=== PATIENT | male | born 1955 | race Caucasian/White ===

== ENCOUNTER 2018-03-05 12:12 | Inpatient (IN) | payer MEDICARE, BC ==
--- NOTE | 2018-03-05 13:11 | ED ---
General Adult HPI - General Chief complaint: Recheck/Abnormal Lab/Rx Stated complaint: Abnormal Labs Time Seen by Provider: 03/05/18 12:54 Source: patient, family, RN notes reviewed Mode of arrival: ambulatory Limitations: no limitations - History of Present Illness Initial comments: Patient is a pleasant 62-year-old male presenting to the emergency department with concern for low platelet level.Patient did have blood work done and had platelet level of 5 reported to him. patient has had chronic rectal bleeding daily for the past month or so. Patient did have recent scope done showing polyp in his stomach that was at least partially removed. Patient did have CAT scan. Patient is seeing Dr. Telles with plan for medication therapy. Patient did notice some red spots on his leg around a month ago however thought it was an ALLERGIC reaction. Red spots continue. Patient is unclear last time he had blood work done. - Related Data Home Medications Medication Instructions Recorded Confirmed Enalapril [Vasotec] 5 mg PO BID 01/05/14 03/05/18 Metoprolol Tartrate [Lopressor] 25 mg PO DAILY 01/05/14 03/05/18 Ranitidine HCl 150 mg PO BID 03/05/18 03/05/18 Allergies Allergy/AdvReac Type Severity Reaction Status Date / Time Penicillins AdvReac high fever Verified 03/05/18 13:11 Review of Systems ROS Statement: Those systems with pertinent positive or pertinent negative responses have been documented in the HPI. ROS Other: All systems not noted in ROS Statement are negative. Constitutional: Denies: fever Eyes: Denies: eye pain ENT: Denies: ear pain Respiratory: Denies: cough, dyspnea Cardiovascular: Denies: chest pain Endocrine: Denies: fatigue Gastrointestinal: Reports: hematochezia. Denies: abdominal pain Genitourinary: Denies: dysuria Musculoskeletal: Denies: back pain Skin: Reports: rash Neurological: Denies: weakness Past Medical History Past Medical History: COPD, GERD/Reflux, Hyperlipidemia, Hypertension, Prostate Disorder Additional Past Medical History / Comment(s): HX RT PNEUMOTHORAX, hx migraines, heart murmer, palpitations, gluten sensitive, diverticulitis, arthritis in neck , left inguinal hernia, small tumor on stomach - cancer History of Any Multi-Drug Resistant Organisms: None Reported Past Surgical History: Adenoidectomy, Hernia Repair, Orthopedic Surgery, Tonsillectomy Additional Past Surgical History / Comment(s): CERVICAL FUSION C3-C6, BILAT CATARACTS, shay knee arthroscopy, Past Anesthesia/Blood Transfusion Reactions: No Reported Reaction Additional Past Anesthesia/Blood Transfusion Reaction / Comment(s): post op breathing problems and diff waking up after neck surgery Past Psychological History: Anxiety Smoking Status: Former smoker Past Alcohol Use History: None Reported Past Drug Use History: Marijuana - Past Family History Mother Family Medical History: No Reported History General Exam Limitations: no limitations General appearance: alert, in no apparent distress Head exam: Present: atraumatic Eye exam: Present: normal appearance, PERRL ENT exam: Present: normal oropharynx Neck exam: Present: normal inspection Respiratory exam: Present: normal lung sounds bilaterally Cardiovascular Exam: Present: regular rate, normal rhythm GI/Abdominal exam: Present: soft. Absent: tenderness Extremities exam: Present: normal inspection Neurological exam: Present: alert Psychiatric exam: Present: normal affect, normal mood Skin exam: Present: petechiae (Bilateral lower legs) Course Vital Signs 03/05/18 03/05/18 12:15 12:40 Temperature 98.4 F Pulse Rate 78 Respiratory 18 16 Rate Blood Pressure 145/85 O2 Sat by Pulse 96 Oximetry Medical Decision Making - Medical Decision Making Case discussed in detail with Dr. Telles who is familiar with this patient. 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 He states there is also colitis on colonoscopy. He does recommend Solu-Medrol and IVIG 0.5 g/ kg followed by platelets 1 unit. 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 Case was also discussed in detail with Dr. Luz, covering for Dr. reyes, who admits for Dr. ascencio - Lab Data Result diagrams: 03/05/18 13:20 03/05/18 13:20 Lab Results 03/05/18 03/05/18 03/05/18 Range/Units 13:20 13:20 13:20 WBC 6.7 (3.8-10.6) k/uL RBC 4.89 (4.30-5.90) m/uL Hgb 13.5 (13.0-17.5) gm/dL Hct 38.8 L (39.0-53.0) % MCV 79.4 L (80.0-100.0) fL MCH 27.5 (25.0-35.0) pg MCHC 34.7 (31.0-37.0) g/dL RDW 13.8 (11.5-15.5) % Plt Count 7 L* (150-450) k/uL Neutrophils % 59 % Lymphocytes % 31 % Monocytes % 6 % Eosinophils % 2 % Basophils % 1 % Neutrophils # 3.9 (1.3-7.7) k/uL Lymphocytes # 2.0 (1.0-4.8) k/uL Monocytes # 0.4 (0-1.0) k/uL Eosinophils # 0.2 (0-0.7) k/uL Basophils # 0.0 (0-0.2) k/uL Manual Slide Review Performed Poikilocytosis (manual Present PT 10.6 (9.0-12.0) sec INR 1.1 (<1.2) APTT 27.6 (22.0-30.0) sec Sodium 135 L (137-145) mmol/L Potassium 3.9 (3.5-5.1) mmol/L Chloride 104 (98-107) mmol/L Carbon Dioxide 26 (22-30) mmol/L Anion Gap 5 mmol/L BUN 17 (9-20) mg/dL Creatinine 0.81 (0.66-1.25) mg/dL Est GFR (CKD-EPI)AfAm >90 (>60 ml/min/1.73 sqM) Est GFR (CKD-EPI)NonAf >90 (>60 ml/min/1.73 sqM) Glucose 124 H (74-99) mg/dL Calcium 8.5 (8.4-10.2) mg/dL Total Bilirubin 0.2 (0.2-1.3) mg/dL AST 27 (17-59) U/L ALT 29 (21-72) U/L Alkaline Phosphatase 65 (38-126) U/L Total Protein 6.2 L (6.3-8.2) g/dL Albumin 3.5 (3.5-5.0) g/dL Critical Care Time Critical Care Time: Yes Total Critical Care Time: 33 Disposition Clinical Impression: Thrombocytopenia Disposition: ADMITTED IP TO THIS [facility] Condition: Serious Is patient prescribed a controlled substance at d/c from ED?: No Referrals: Trever Navarro MD [Primary Care Provider] - 1-2 days Decision Time: 15:02
[2018-03-05 13:47] LABS: Basophils % (A) 1 %; Eosinophils # (A) 0.2 k/uL (0-0.7); Eosinophils % (A) 2 %; HCT 38.8 % (39.0-53.0); HGB 13.5 gm/dL (13.0-17.5); Lymphocytes % (A) 31 %; MCH 27.5 pg (25.0-35.0); MCHC 34.7 g/dL (31.0-37.0); MCV 79.4 fL (80.0-100.0); Mean Platelet Volume 11.9; Monocytes # (A) 0.4 k/uL (0-1.0); Monocytes % (A) 6 %; Neutrophils # (A) 3.9 k/uL (1.3-7.7); Neutrophils % (A) 59 %; RBC 4.89 m/uL (4.30-5.90); RDW 13.8 % (11.5-15.5); WBC 6.7 k/uL (3.8-10.6)
[2018-03-05 13:51] LABS: INR 1.1 (<1.2); Partial Thromboplastin Time 27.6 sec (22.0-30.0); Prothrombin Time 10.6 sec (9.0-12.0)
[2018-03-05 13:52] LABS: ALT 29 U/L (21-72); AST 27 U/L (17-59); Albumin 3.5 g/dL (3.5-5.0); Alkaline Phosphatase 65 U/L (38-126); Anion Gap 5 mmol/L; Blood Urea Nitrogen 17 mg/dL (9-20); Calcium 8.5 mg/dL (8.4-10.2); Carbon Dioxide 26 mmol/L (22-30); Chloride 104 mmol/L (98-107); Glucose 124 mg/dL (74-99); Potassium 3.9 mmol/L (3.5-5.1); Sodium 135 mmol/L (137-145); Total Bilirubin 0.2 mg/dL (0.2-1.3); Total Protein 6.2 g/dL (6.3-8.2)
[2018-03-05 14:19] LABS: Platelet Count 7 k/uL (150-450)
[2018-03-05 14:22] LABS: Poikilocytosis (M) Present
[2018-03-05] MEDS ORDERED: methylPREDNISolone SOD SUCCI 125 MG/2 ML VIAL IV STA (14:55)
[2018-03-05] MEDS ORDERED: IMMUNE GLOBULIN (HUMAN-IGG) 1 GM/10 ML VIAL IV ONE (14:56)
[2018-03-05] MEDS ORDERED: NALOXONE 0.4 MG/ML 1 ML VIAL IV PRN (15:04)
[2018-03-05] MEDS ORDERED: IMMUNE GLOBULIN (HUMAN-IGG) 30 GM in EMPTY BAG 1 BAG IV ONE (15:30)
[2018-03-05] MEDS ORDERED: IMMUNE GLOBULIN (HUMAN-IGG) 5 GM in EMPTY BAG 1 BAG IV ONE (15:30)
--- NOTE | 2018-03-05 16:13 | P.HPIM ---
History of Present Illness H&P Date: 03/05/18 Chief Complaint: Abnormal blood count 62-year-old male who was referred from Dr. Braxton's office because of abnormal blood test. Patient was found to have extremely low platelet count at 7. Most recently patient had an upper endoscopy, had a biopsy of a duodenal polyp and that showed what could be a carcinoid/neuroendocrine tumor. No further treatment was recommended for that because the tumor was very small and he did not have any systemic disease. Patient stated that he has been having bright red blood in the stool over the last several months. He has also been having red dots in both his legs as well. Last August he had a hernia repair through a laparoscopy and after that he started having stomach upset. Several months later he had the upper endoscopy because he continued to have symptoms of stomach upset. He denied having any fevers, chills, chest pain or shortness of breath. No nausea or vomiting, no diarrhea. No urinary symptoms. No focal weakness or numbness, no blurry or double vision. 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 History of Any Multi-Drug Resistant Organisms: None Reported Past Surgical History: Adenoidectomy, Hernia Repair, Orthopedic Surgery, Tonsillectomy Additional Past Surgical History / Comment(s): CERVICAL FUSION C3-C6, BILAT CATARACTS, shay knee arthroscopy, Past Anesthesia/Blood Transfusion Reactions: No Reported Reaction Additional Past Anesthesia/Blood Transfusion Reaction / Comment(s): post op breathing problems and diff waking up after neck surgery Past Psychological History: Anxiety Smoking Status: Former smoker Past Alcohol Use History: None Reported Past Drug Use History: Marijuana - Past Family History Mother Family Medical History: No Reported History Medications and Allergies Home Medications Medication Instructions Recorded Confirmed Type Enalapril [Vasotec] 5 mg PO BID 01/05/14 03/05/18 History Metoprolol Tartrate [Lopressor] 25 mg PO DAILY 01/05/14 03/05/18 History Ranitidine HCl 150 mg PO BID 03/05/18 03/05/18 History Allergies Allergy/AdvReac Type Severity Reaction Status Date / Time Penicillins AdvReac high fever Verified 03/05/18 13:11 Physical Exam Vitals: Vital Signs Temp Pulse Resp BP Pulse Ox 03/05/18 12:40 16 03/05/18 12:15 98.4 F 78 18 145/85 96 Intake and Output 03/05/18 03/05/18 03/05/18 06:59 14:59 22:59 Other: Weight 82.554 kg Constitutional: No acute distress, conversant, pleasant Eyes:Anicteric sclerae, moist conjunctiva, no lid-lag, PERRLA, ENMT: Oropharynx clear, no erythema, exudates Neck: Supple, FROM, no masses, or JVD, No carotid bruits, No thyromegaly Lungs: Clear to auscultation, Clear to percussion, Normal respiratory effort, no accessory muscle use Cardiovascular: Heart regular in rate and rhythm, No murmurs, gallops, or rubs, No peripheral edema Abdominal: Soft, Nontender, no guarding, rebound or rigidity, Normoactive bowel sounds, No hepatomegaly, No splenomegaly, No palpable mass Skin: Petechiae in both legs. Normal temperature, tone, texture, turgor, no induration, No subcutaneous nodules, No ulcers Extremities: No digital cyanosis, No clubbing, Pedal pulses intact and symmetrical, Radial pulses intact and symmetrical, No calf tenderness Psychiatric: Alert and oriented to person, place and time, appropriate affect, intact judgement Neuro: Muscles Strength 5/5 in all 4 extremities, Sensation to light touch grossly present throughout, Cranial nerves II-XII grossly intact, no focal sensory deficits Results CBC & Chem 7: 03/05/18 13:20 03/05/18 13:20 Labs: Abnormal Lab Results - Last 24 Hours (Table) 03/05/18 03/05/18 Range/Units 13:20 13:20 Hct 38.8 L (39.0-53.0) % MCV 79.4 L (80.0-100.0) fL Plt Count 7 L* (150-450) k/uL Sodium 135 L (137-145) mmol/L Glucose 124 H (74-99) mg/dL Total Protein 6.2 L (6.3-8.2) g/dL Assessment and Plan Plan: Severe thrombocytopenia, most likely secondary to ITP Discussed with Dr. Braxton Treat with steroids and IVIG Platelet transfusion Follow-up CBC in a.m. Further workup as per Dr. Braxton GERD/Reflux, Hyperlipidemia, Hypertension Stable Resume home meds DVT prophylaxis Low risk, ambulatory
[2018-03-05] MEDS: SODIUM CHLORIDE 0.9% 1,000 ML IV SCH (18:22)
[2018-03-05] MEDS: methylPREDNISolone SOD SUCCI 125 MG/2 ML VIAL IV SCH (19:12)
[2018-03-05] MEDS: LISINOPRIL 10 MG TAB PO SCH (21:02)
[2018-03-05] MEDS: FAMOTIDINE 20 MG TAB PO SCH (21:02)
[2018-03-05 21:32] LABS: Glucose,Whole Blood 131 mg/dL (75-99)
[2018-03-05] MEDS ORDERED: DIAZEPAM 5 MG TAB PO PRN (21:48)
[2018-03-05] MEDS ORDERED: IPRATROPIUM-ALBUTEROL 3 ML NEB INHALATION PRN (21:49)
[2018-03-05] MEDS ORDERED: ACETAMINOPHEN TAB 325 MG TAB PO PRN (21:49)
[2018-03-05] MEDS: ATORVASTATIN 10 MG TAB PO SCH (22:17)
[2018-03-06] MEDS: methylPREDNISolone SOD SUCCI 125 MG/2 ML VIAL IV SCH ×5 (00:04→23:42)
[2018-03-06 06:26] LABS: Glucose,Whole Blood 154 mg/dL (75-99)
[2018-03-06] MEDS: INSULIN ASPART 100 UNIT/ML 1 ML 10 ML VIAL SQ SCH ×4 (06:36→22:19)
[2018-03-06 06:50] LABS: Basophils % (A) 0 %; Eosinophils % (A) 0 %; HGB 13.6 gm/dL (13.0-17.5); Lymphocytes % (A) 13 %; MCH 27.4 pg (25.0-35.0); MCV 80.4 fL (80.0-100.0); Monocytes # (A) 0.1 k/uL (0-1.0); Monocytes % (A) 2 %; Neutrophils # (A) 6.5 k/uL (1.3-7.7); Neutrophils % (A) 84 %; RBC 4.98 m/uL (4.30-5.90); RDW 13.7 % (11.5-15.5); WBC 7.7 k/uL (3.8-10.6)
[2018-03-06 06:59] LABS: Anion Gap 6 mmol/L; Blood Urea Nitrogen 17 mg/dL (9-20); Calcium 8.9 mg/dL (8.4-10.2); Carbon Dioxide 24 mmol/L (22-30); Chloride 108 mmol/L (98-107); Glucose 153 mg/dL (74-99); Magnesium 1.9 mg/dL (1.6-2.3); Phosphorus 2.9 mg/dL (2.5-4.5); Potassium 4.1 mmol/L (3.5-5.1); Sodium 138 mmol/L (137-145)
[2018-03-06] MEDS: METOPROLOL TARTRATE 25 MG TAB PO SCH (09:17)
[2018-03-06] MEDS: FAMOTIDINE 20 MG TAB PO SCH ×2 (09:17→21:05)
[2018-03-06] MEDS: LISINOPRIL 10 MG TAB PO SCH ×2 (09:17→21:05)
[2018-03-06 10:32] LABS: Platelet Count 29 k/uL (150-450)
--- NOTE | 2018-03-06 11:16 | P.PN ---
Subjective Progress Note Date: 03/06/18 Principal diagnosis: Petechia, GI bleeding No overnight issues. Doing well. Objective - Vital Signs Vital signs: Vital Signs Temp 97.3 F L 03/06/18 08:00 Pulse 94 03/06/18 08:00 Resp 16 03/06/18 08:00 BP 148/72 03/06/18 08:00 Pulse Ox 94 L 03/06/18 08:00 Intake & Output 03/05/18 03/06/18 03/06/18 18:59 06:59 18:59 Intake Total 116.000 301 360 Output Total 1550 Balance 116.000 -1249 360 Weight 82.554 kg 82.1 kg Intake: Intake, IV Titration 116.000 Amount Immune Globulin (Human- 116.000 IgG) 30 gm In Empty Bag 1 bag @ Per Protocol IV . Q0M ONE Rx#:[id number] Oral 360 Blood Product 301 Platelet Irr Pheresis 2 301 Acda Unit [id number] Output: Urine 1550 Other: Voiding Method Toilet Toilet Urinal Urinal - Exam Constitutional: No acute distress, conversant, pleasant Eyes:Anicteric sclerae, moist conjunctiva, no lid-lag, PERRLA, ENMT: Oropharynx clear, no erythema, exudates Neck: Supple, FROM, no masses, or JVD, No carotid bruits, No thyromegaly Lungs: Clear to auscultation, Clear to percussion, Normal respiratory effort, no accessory muscle use Cardiovascular: Heart regular in rate and rhythm, No murmurs, gallops, or rubs, No peripheral edema Abdominal: Soft, Nontender, no guarding, rebound or rigidity, Normoactive bowel sounds, No hepatomegaly, No splenomegaly, No palpable mass Skin: Petechiae in both legs. Normal temperature, tone, texture, turgor, no induration, No subcutaneous nodules, No ulcers Extremities: No digital cyanosis, No clubbing, Pedal pulses intact and symmetrical, Radial pulses intact and symmetrical, No calf tenderness Psychiatric: Alert and oriented to person, place and time, appropriate affect, intact judgement Neuro: Muscles Strength 5/5 in all 4 extremities, Sensation to light touch grossly present throughout, Cranial nerves II-XII grossly intact, no focal sensory deficits - Labs CBC & Chem 7: 03/06/18 06:14 03/06/18 06:14 Labs: Abnormal Lab Results - Last 24 Hours (Table) 03/05/18 03/05/18 03/05/18 Range/Units 13:20 13:20 21:31 Hct 38.8 L (39.0-53.0) % MCV 79.4 L (80.0-100.0) fL Plt Count 7 L* (150-450) k/uL Sodium 135 L (137-145) mmol/L Chloride (98-107) mmol/L Glucose 124 H (74-99) mg/dL POC Glucose (mg/dL) 131 H (75-99) mg/dL Total Protein 6.2 L (6.3-8.2) g/dL 03/06/18 03/06/18 03/06/18 Range/Units 06:14 06:14 06:24 Hct (39.0-53.0) % MCV (80.0-100.0) fL Plt Count 29 L* D (150-450) k/uL Sodium (137-145) mmol/L Chloride 108 H (98-107) mmol/L Glucose 153 H (74-99) mg/dL POC Glucose (mg/dL) 154 H (75-99) mg/dL Total Protein (6.3-8.2) g/dL Assessment and Plan Plan: Severe thrombocytopenia, most likely secondary to ITP Discussed with hematology Continue steroids and IVIG, plan for second dose of IVIG today S/P 1 unit of platelet transfusion Follow-up CBC in a.m. Further workup as per hematology GERD/Reflux, Hyperlipidemia, Hypertension Stable Resume home meds DVT prophylaxis Low risk, ambulatory
[2018-03-06 11:41] LABS: Glucose,Whole Blood 181 mg/dL (75-99)
[2018-03-06 16:11] LABS: Glucose,Whole Blood 140 mg/dL (75-99)
[2018-03-06] MEDS: PANTOPRAZOLE 40 MG/10 ML VIAL IV SCH (16:50)
[2018-03-06] MEDS ORDERED: IMMUNE GLOBULIN (HUMAN-IGG) 1 GM/10 ML VIAL IV ONE (18:03)
[2018-03-06] MEDS ORDERED: IMMUNE GLOBULIN (HUMAN-IGG) 5 GM in EMPTY BAG 1 BAG IV ONE ×2 (18:15→18:30)
[2018-03-06] MEDS ORDERED: IMMUNE GLOBULIN (HUMAN-IGG) 30 GM in EMPTY BAG 1 BAG IV ONE ×2 (18:15→18:30)
[2018-03-06 20:54] LABS: Glucose,Whole Blood 135 mg/dL (75-99)
[2018-03-06] MEDS: ATORVASTATIN 10 MG TAB PO SCH (21:05)
[2018-03-06] MEDS: SODIUM CHLORIDE 0.9% 1,000 ML IV SCH (21:08)
[2018-03-07 06:25] LABS: Glucose,Whole Blood 112 mg/dL (75-99)
[2018-03-07] MEDS: INSULIN ASPART 100 UNIT/ML 1 ML 10 ML VIAL SQ SCH (06:26)
[2018-03-07 06:39] VITALS: TEMP 97.4
[2018-03-07] MEDS: methylPREDNISolone SOD SUCCI 125 MG/2 ML VIAL IV SCH (06:40)
[2018-03-07 07:14] LABS: Anion Gap 8 mmol/L; Blood Urea Nitrogen 15 mg/dL (9-20); Calcium 9.2 mg/dL (8.4-10.2); Carbon Dioxide 27 mmol/L (22-30); Chloride 106 mmol/L (98-107); Glucose 111 mg/dL (74-99); Magnesium 1.9 mg/dL (1.6-2.3); Phosphorus 3.3 mg/dL (2.5-4.5); Potassium 3.7 mmol/L (3.5-5.1); Sodium 141 mmol/L (137-145)
[2018-03-07 07:16] LABS: Basophils % (A) 0 %; Eosinophils % (A) 0 %; HCT 41.4 % (39.0-53.0); HGB 14.1 gm/dL (13.0-17.5); Lymphocytes # (A) 2.2 k/uL (1.0-4.8); Lymphocytes % (A) 14 %; MCH 27.4 pg (25.0-35.0); MCHC 34.1 g/dL (31.0-37.0); MCV 80.2 fL (80.0-100.0); Mean Platelet Volume 8.5; Monocytes # (A) 0.9 k/uL (0-1.0); Monocytes % (A) 6 %; Neutrophils # (A) 12.3 k/uL (1.3-7.7); Neutrophils % (A) 79 %; RBC 5.16 m/uL (4.30-5.90); WBC 15.5 k/uL (3.8-10.6)
[2018-03-07 07:21] LABS: Platelet Count 99 k/uL (150-450)
[2018-03-07] MEDS: METOPROLOL TARTRATE 25 MG TAB PO SCH (08:47)
[2018-03-07] MEDS: PANTOPRAZOLE 40 MG/10 ML VIAL IV SCH (08:47)
[2018-03-07] MEDS: LISINOPRIL 10 MG TAB PO SCH (08:47)
[2018-03-07] MEDS: FAMOTIDINE 20 MG TAB PO SCH (08:48)
[2018-03-07 08:56] VITALS: BP 179/89; PULSE 92; RESP 16
--- NOTE | 2018-03-07 09:23 | P.DS ---
Providers Date of admission: 03/05/18 15:04 Expected date of discharge: 03/07/18 Attending physician: Jyoti Polk MD Consults: 03/05/18 15:04 Consult Physician Stat Consulting Provider: Jb Braxton Consult Reason/Comments: Thrombocytopenia Do you want consulting provider notified?: Already Contacted Primary care physician: Trever Adamson [facility] Hospital Course: 62-year-old male who was referred from Dr. Braxton's office because of abnormal blood test. Patient was found to have extremely low platelet count at 7. Most recently patient had an upper endoscopy, had a biopsy of a duodenal polyp and that showed what could be a carcinoid/neuroendocrine tumor. No further treatment was recommended for that because the tumor was very small and he did not have any systemic disease. Patient stated that he has been having bright red blood in the stool over the last several months. He has also been having red dots in both his legs as well. Last August he had a hernia repair through a laparoscopy and after that he started having stomach upset. Several months later he had the upper endoscopy because he continued to have symptoms of stomach upset. He denied having any fevers, chills, chest pain or shortness of breath. No nausea or vomiting, no diarrhea. No urinary symptoms. No focal weakness or numbness, no blurry or double vision. Patient was subsequently admitted to the hospital. In the emergency department his exam was nonrevealing except for some petechia in both his legs and feet. His vital signs are all stable. Patient was started on treatment with IVIG as well as Solu-Medrol. Patient also received 1 unit of platelet transfusion. The case was discussed with oncology/hematology service. Throughout his hospitalization patient received 2 doses of IVIG. Platelet count came up to 99 on the day of discharge. Patient will be discharged home in a stable condition. He was instructed to follow-up with dermatology as soon as possible after discharge. He will be discharged on 60 mg of by mouth prednisone as recommended by the lock master. 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 Patient Condition at Discharge: Serious Plan - Discharge Summary Discharge Rx Participant: No New Discharge Prescriptions: New predniSONE 20 mg PO DAILY #60 tab Continue Metoprolol Tartrate [Lopressor] 25 mg PO DAILY Enalapril [Vasotec] 5 mg PO DAILY Ranitidine HCl 150 mg PO DAILY Diazepam [Valium] 5 mg PO TID PRN PRN Reason: Agitation Or Acute Anxiety Simvastatin [Zocor] 5 mg PO HS Discharge Medication List Enalapril [Vasotec] 5 mg PO DAILY 01/05/14 [History] Metoprolol Tartrate [Lopressor] 25 mg PO DAILY 01/05/14 [History] Diazepam [Valium] 5 mg PO TID PRN 03/05/18 [History] Ranitidine HCl 150 mg PO DAILY 03/05/18 [History] Simvastatin [Zocor] 5 mg PO HS 03/05/18 [History] predniSONE 20 mg PO DAILY #60 tab 03/07/18 [Rx] Follow up Appointment(s)/Referral(s): Trever Navarro MD [Primary Care Provider] - 1-2 days
--- NOTE | 2018-03-07 10:45 | P.CONS ---
History of Present Illness - Reason for Consult Consult date: 03/06/18 Thrombocytopenia Requesting physician: Jyoti Polk - Chief Complaint Thrombocytopenia on OPD labs - History of Present Illness Mr. Mccray is a very pleasant 62 yo male who is here from clinic for newly found thrombocytopenia. He has been having melena/mild GI bleed for a few months now, and being evaluated by GI for this. Underwent several colonoscopies which have been negative per pt and then had EGD, which showed a polyp. Polyp was resected and pathology showed microscopic carcinoid in the polyp. He was seen by Dr. Braxton, who has been working him up for possible systemic carcinoid, and dino routine labs including CBC. CBC showed platelet < 10, which persisted on repeat CBC. He was told to go to the ED for further work up and management. He otherwise has been feeling well, without any recent infections or weight loss, fatigue, fevers, night sweats, or bleeding. Has noticed a mild petechial rash on his legs. Suspicion was for ITP and he was started on solumedrol and IVIG. He also received a unit of platelets on presentation yesterday. Today he continues to feel well. His petechial rash is improving, although he continues to have faint petechia on his legs. No bleeding. Tolerated IVIG and steroids well without reaction. Plt did improve to 29 in setting of transfusion. No smoking, alcohol or drugs other than smoking medical marijuana for his chronic neck pain. He did smoke in the past and quit in 1995. No known personal or family history of autoimmune disorder, bleeding disorders, or cancers. Review of Systems All systems: negative Constitutional: Reports as per HPI Past Medical History Past Medical History: COPD, GERD/Reflux, Hyperlipidemia, Hypertension Additional Past Medical History / Comment(s): HX RT PNEUMOTHORAX, hx migraines, heart murmer, palpitations, gluten sensitive, diverticulitis, arthritis in neck , left inguinal hernia, small tumor on stomach - cancer History of Any Multi-Drug Resistant Organisms: None Reported Past Surgical History: Adenoidectomy, Hernia Repair, Orthopedic Surgery, Tonsillectomy Additional Past Surgical History / Comment(s): CERVICAL FUSION C3-C6, BILAT CATARACTS, shay knee arthroscopy, Past Anesthesia/Blood Transfusion Reactions: No Reported Reaction Additional Past Anesthesia/Blood Transfusion Reaction / Comm: post op breathing problems and diff waking up after neck surgery Past Psychological History: Anxiety Smoking Status: Former smoker Past Alcohol Use History: None Reported Additional Past Alcohol Use History / Comment(s): quit smoking 1995, smoked for 30 yrs Past Drug Use History: Marijuana Additional Drug Use History / Comment(s): medical marijuana - Past Family History Mother Family Medical History: No Reported History Medications and Allergies Home Medications Medication Instructions Recorded Confirmed Type Enalapril [Vasotec] 5 mg PO DAILY 01/05/14 03/05/18 History Metoprolol Tartrate [Lopressor] 25 mg PO DAILY 01/05/14 03/05/18 History Diazepam [Valium] 5 mg PO TID PRN 03/05/18 03/05/18 History Ranitidine HCl 150 mg PO DAILY 03/05/18 03/05/18 History Simvastatin [Zocor] 5 mg PO HS 03/05/18 03/05/18 History predniSONE 20 mg PO DAILY #60 tab 03/07/18 Rx Allergies Allergy/AdvReac Type Severity Reaction Status Date / Time Penicillins AdvReac high fever Verified 03/05/18 13:11 Physical Exam Vitals: Vital Signs Temp Pulse Pulse Resp BP BP Pulse Ox 03/06/18 16:00 98 16 150/102 03/06/18 12:00 79 16 168/81 92 L 03/06/18 11:37 16 03/06/18 08:00 97.3 F L 94 16 148/72 94 L 03/06/18 04:00 97.2 F L 86 18 160/81 96 03/06/18 00:05 97.2 F L 89 18 139/75 96 03/06/18 00:03 97.2 F L 89 18 139/75 96 03/06/18 00:00 97.2 F L 89 18 139/75 96 Intake and Output 03/06/18 03/06/18 03/06/18 06:59 14:59 22:59 Intake Total 301 720 269.333 Output Total 1050 Balance -749 720 269.333 Intake: Intake, IV Titration 29.333 Amount Immune Globulin (Human- 29.333 IgG) 5 gm In Empty Bag 1 bag @ Titrate IV .Q0M ONE Rx#:[id number] Oral 720 240 Blood Product 301 Platelet Irr Pheresis 2 301 Acda Unit [id number] Output: Urine 1050 Other: Voiding Method Toilet Toilet Toilet Urinal Urinal Urinal # Voids 2 Weight 82.1 kg Constitutional: No acute distress. HEENT: EOMI. No scleral icterus or pallor. Mucosa moist. Neck: Neck supple. No thyromegaly. Lymph: No neck/cervical or axillary LAD. Lungs: CTA-B without wheezing or rhonchi. Heart: RRR without murmurs. No LE edema. Abdomen: Soft, nontender, nondistended, with positive bowel sounds. No palpable hepatosplenomegaly or masses. MSK: 4/4 strength in all 4 extremities. Neuro: Alert and oriented x 3. No obvious gross neurologic deficits. Skin: No jaundice. Minimal petechial rash on his legs. Psych: Appropriate affect. Results CBC & Chem 7: 03/07/18 06:40 03/07/18 06:40 Labs: Abnormal Lab Results - Last 24 Hours (Table) 03/06/18 03/06/18 03/06/18 Range/Units 06:14 06:14 06:24 Plt Count 29 L* D (150-450) k/uL Chloride 108 H (98-107) mmol/L Glucose 153 H (74-99) mg/dL POC Glucose (mg/dL) 154 H (75-99) mg/dL 03/06/18 03/06/18 03/06/18 Range/Units 11:36 16:09 20:41 Plt Count (150-450) k/uL Chloride (98-107) mmol/L Glucose (74-99) mg/dL POC Glucose (mg/dL) 181 H 140 H 135 H (75-99) mg/dL Assessment and Plan Assessment: 1. Thrombocytopenia, due to ITP 2. Carcinoid, microscopic involvement on polypectomy Plan: Mr. Mccray is a very pleasant 62 yo male with no PMH other than recent microscopic carcinoid seen on polypectomy, incidentally found to have thrombocytopenia on routine labs by Dr. Braxton, plt 4-5. Repeat platelets in ED 7. Has mild petechial rash on legs. Thrombocytopenia, likely due to ITP. Improved with 1 unit platelet, solumedrol and IVIG x 1 dose, with plt increasing from 7 to 29. Part of this could be due to transfusion and his platelets could drop over the next couple days. Will plan on giving him another dose of IVIG, continuing solumedrol for now, and consider discharge on prednisone tomorrow (03/07/18) if platelets remain >20 without further transfusion. Will hold off on transfusions for now unless actively bleeding. Will start further work up for etiology of his ITP. Discussed in detail with pt and his at bedside. All questions answered. Addendum: I spoke with pt's primary team on 03/07/18. Plt improved to 99. No bleeding. No objections to discharge on prednisone 60mg daily until he follows up with Dr. Braxton. Would recommend follow up within 1 week for repeat CBC and likely taper of his steroids.
[2018-03-08 09:15] LABS: Protein, Total 8.2 g/dL (6.2-8.2)
[2018-03-08 09:30] LABS: Folate, Serum 6.6 ng/mL
[2018-03-08 10:25] LABS: Hepatitis A Antibody IgM Non-Reactive (Non-Reactive); Hepatitis B Core IgM Non-Reactive (Non-Reactive)
[2018-03-08 11:43] LABS: HIV AB P24 Non-Reactive (Non-Reactive); HIV P24 AG Non-Reactive (Non-Reactive)
[2018-03-08 14:49] LABS: Albumin 3.77 g/dL (3.80-4.90)
[2018-03-09 11:25] LABS: ANA Pattern Speckled; ANA Pattern 2 Nucleolar
== END 2018-03-07 11:43 | disposition home or self-care (01) | DRG 813 ==
LOC: EC 12:12 → 6SEL 15:04
PROVIDERS: ADMIT Internal Medicine; ATTEND Internal Medicine
PROC: 30233R1 Transfusion of Nonautologous Platelets into Peripheral Vein, Percutaneous Approach (ICD-10-PCS; principal; 2018-03-05)
DX: D69.3 Immune thrombocytopenic purpura (principal); K92.2 Gastrointestinal hemorrhage, unspecified; E78.5 Hyperlipidemia, unspecified; F41.9 Anxiety disorder, unspecified; G89.29 Other chronic pain; I10 Essential (primary) hypertension; J44.9 Chronic obstructive pulmonary disease, unspecified; K21.9 Gastro-esophageal reflux disease without esophagitis; G43.909 Migraine, unspecified, not intractable, without status migrainosus; N42.9 Disorder of prostate, unspecified; M54.2 Cervicalgia; R01.1 Cardiac murmur, unspecified; M47.9 Spondylosis, unspecified; K57.90 Diverticulosis of intestine, part unspecified, without perforation or abscess without bleeding; Z87.19 Personal history of other diseases of the digestive system; Z87.891 Personal history of nicotine dependence; Z79.899 Other long term (current) drug therapy; Z88.0 Allergy status to penicillin; Z98.1 Arthrodesis status; Z98.42 Cataract extraction status, left eye; Z98.41 Cataract extraction status, right eye; Z96.1 Presence of intraocular lens
CPT/HCPCS: 36415; 80048; 80053; 80074; 82607; 82746; 83735; 83883; 84100; 84165; 84443; 85025; 85610; 85730; 86038; 86039; 86334; 86850; 86900; 86901; 87390; 96365; 96366; 96375; 99285

== ENCOUNTER → 2022-05-27 | Outpatient (CLI) | payer MEDICARE ==
[2022-05-27 12:38] LABS: African American GFR (CKD) >90 (>60 ml/min/1.73 sqM); Blood Urea Nitrogen 20 mg/dL (9-20); Non-African American GFR(CKD) 89 (>60 ml/min/1.73 sqM)
--- NOTE | 2022-05-27 14:52 | CT ---
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 Follow-up after polyp re moval in 2018. TECHNIQUE: Contiguous axial scanning of the chest, abdomen, and pelvis performed with IV Contrast, pa tient injected with 100 mL of Isovue 370. Delayed images through the kidneys were obtained. Coronal/s agittal reconstructions performed. CT DLP: 1551 mGycm Automated exposure control for dose reduction was used. FINDINGS: CHEST: Heart normal size without pericardial effusion. LAD and RCA coronary artery calcifications are presen t. Aneurysmal aortic root at 4.5 cm versus 4.4 cm on 08/21/2010. Ectatic ascending aorta 3.9 cm. Conventio nal arch vessel branching anatomy. There is patchy opacity adjacent to the anterior mediastinum both in the subpleural region and within the anteromedial right mid lung. Focal areas of opacity measure up to 1.2 cm and are new from 2010. Left hilar nodes measuring up to 1.2 cm are unchanged. Right hilar nodes measuring up to 1.7 cm are a lso unchanged. No new or enlarging thoracic lymphadenopathy is identified. Moderate to advanced centrilobular emphysema. Some patchy opacity is present anterior left upper lobe. There is also some new irregular pleural thickening measuring up to 9 mm thick, referred to axial jimmie ges 18 through 21, located along the anteromedial left mid lung. ABDOMEN: No focal liver lesion or biliary ductal dilatation. Portal venous system is patent. Gallbladder, right kidney, and pancreas show no gross abnormality. A hypervascular enhancing 1.3 cm nodule along the anterolateral aspect of the spleen, axial image 64 not clearly seen previously. There is new moderate left-sided hydronephrosis with an enhancing filling defect within the mid left ureter measuring 2.6 x 1.4 cm (axial image 93 and coronal image 54). No dilated small bowel, free fluid, or free air. No mesenteric or retroperitoneal lymphadenopathy. Moderate stool burden. There is proximal to mid sigmoid diverticulosis. No pericolonic inflammatory c hange. Moderate atherosclerotic calcifications infrarenal abdominal aorta and common iliac arteries. PELVIS: Bladder is urine distended. Prostate gland enlarged at 5.4 cm wide. No abnormal fluid collection the pelvis or pelvic lymphadenopathy. BONES: Mild degenerative change of the hips. Moderate degenerative disc disease L5-S1. Hypertrophic facet ar thropathy mid to lower lumbar spine. Moderate degenerative disc disease midthoracic spine. Partially visualized ACDF are present. No osseous destructive process seen. IMPRESSION: 1. A FEW SUSPICIOUS AREAS WHICH WILL REQUIRE FOLLOW-UP: 2. NEW IRREGULAR PLEURAL THICKENING ALONG THE ANTEROMEDIAL LEFT MID LUNG MEASURING 9 MM THICK. DEVELO PING PLEURAL BASED NEOPLASM OR PLEURAL METASTASIS NOT EXCLUDED. THERE IS BACKGROUND OF MODERATE TO AD VANCED EMPHYSEMA. A COUPLE ANTERIOR MID LUNG PULMONARY NODULES MEASURING UP TO 1.2 CM ALSO WARRANT CL OSE FOLLOW-UP TO EXCLUDE A NEOPLASTIC ETIOLOGY. CORRELATE FOR ANY SYMPTOMS OF PNEUMONIA. 3. NEW MODERATE LEFT-SIDED HYDRONEPHROSIS SECONDARY TO ENHANCING 2.6 X 1.4 CM SOFT TISSUE FILLING TH E MID LEFT URETER. FURTHER WORKUP FOR UROTHELIAL CARCINOMA. 4. ENHANCING 1.3 CM NODULE ANTERIOR ASPECT OF THE SPLEEN. WHILE A SMALL HEMANGIOMA IS POSSIBLE, TH IS IS NEW, A HYPERVASCULAR METASTASIS SHOULD BE EXCLUDED. 5. INCIDENTAL: ANEURYSMAL AORTIC ROOT AT 4.5 CM (VERSUS 4.4 CM IN 2011) AND PROSTATOMEGALY AT 5.4 CM WIDE.
== END | disposition home or self-care (01) ==
LOC: RADCTMAIN 11:51
PROVIDERS: ATTEND Internal Medicine Hematology & Oncology
DX: C7A.010 Malignant carcinoid tumor of the duodenum (principal)
CPT/HCPCS: 82565; 84520; 71260; 74177; 36415; Q9967

== ENCOUNTER → 2022-06-11 | Outpatient (CLI) | payer MEDICARE ==
[2022-06-11 16:08] LABS: Basophils # (A) 0.06 X 10*3/uL (0.00-0.10); Basophils % (A) 0.8 %; Eosinophils # (A) 0.21 X 10*3/uL (0.04-0.35); Eosinophils % (A) 2.8 %; HCT 40.1 % (39.6-50.0); HGB 13.4 g/dL (13.0-17.0); Immature Grans, Automated 0.4 %; Lymphocytes # (A) 2.56 X 10*3/uL (0.90-5.00); Lymphocytes % (A) 33.7 %; MCH 27.2 pg (27.0-32.0); MCHC 33.4 g/dL (32.0-37.0); MCV 81.5 fL (80.0-97.0); Monocytes % (A) 10.5 %; NRBC Per 100 WBC 0 /100 WBCS (0.0-0.0); Neutrophils # (A) 3.93 X 10*3/uL (1.80-7.70); Neutrophils % (A) 51.8 %; Platelet Count 162 X 10*3/uL (140-440); RBC 4.92 X 10*6/uL (4.40-5.60); RDW 14.5 % (11.5-14.5); WBC 7.59 X 10*3/uL (4.50-10.00)
[2022-06-11 16:26] LABS: African American GFR (CKD) 107.4 (60.0-200.0); Anion Gap 7.8 mmol/L (10.00-18.00); BUN/Creat Ratio 15.98 Ratio (12.00-20.00); Blood Urea Nitrogen 12.5 mg/dL (9.0-27.0); Carbon Dioxide 27.6 mmol/L (20.0-27.5); Non-African American GFR(CKD) 92.7 (60.0-200.0); Potassium 4.4 mmol/L (3.5-5.5)
== END | disposition home or self-care (01) ==
LOC: LABPAT 10:05
PROVIDERS: ATTEND Urology
DX: Z01.812 Encounter for preprocedural laboratory examination (principal); D41.20 Neoplasm of uncertain behavior of unspecified ureter
CPT/HCPCS: 80048; 85025

== ENCOUNTER 2022-06-19 06:19 | Day surgery (SDC) | payer MEDICARE ==
--- NOTE | 2022-06-18 07:03 | P.GSHP ---
History of Present Illness H&P Date: 06/18/22 Chief Complaint: Left hydronephrosis The patient is a 67-year-old white male diagnosed with malignant carcinoid tumor of the duodenum in 2018. He undergoes serial imaging. A recent CT scan has shown moderate left hydronephrosis due to a 2.6 cm left mid ureteral tumor. 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 He denies hematuria and flank pain. He states that he is passing tiny calculi which he describes as salt-like particles. - Cardiovascular Cardiovascular: Reports high blood pressure - Genitourinary (Male) Genitourinary: Denies dysuria, Denies flank pain, Denies hematuria Past Medical History Past Medical History: Blood Disorder, COPD, GERD/Reflux, Hyperlipidemia, Hypertension Additional Past Medical History / Comment(s): HX RT PNEUMOTHORAX, hx migraines, heart murmer, palpitations, gluten sensitive, diverticulitis, arthritis in neck, shay inguinal hernia, small tumor on stomach - was cancer no tx needed, spasms in neck muscles . 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 History of Any Multi-Drug Resistant Organisms: None Reported Past Surgical History: Adenoidectomy, Hernia Repair, Orthopedic Surgery, Tonsillectomy Additional Past Surgical History / Comment(s): CERVICAL FUSION C3-C6, BILAT CATARACTS, shay knee arthroscopy, inguinal hernia repair shay, tumor removed from stomach endoscopically, Past Anesthesia/Blood Transfusion Reactions: No Reported Reaction Additional Past Anesthesia/Blood Transfusion Reaction / Comment(s): post op breathing problems and diff waking up after neck surgery Smoking Status: Former smoker - Past Family History Mother Family Medical History: No Reported History Medications and Allergies Home Medications Medication Instructions Recorded Confirmed Type Metoprolol Tartrate [Lopressor] 25 mg PO DAILY 01/05/14 06/16/22 History diazePAM [Valium] 5 mg PO TID PRN 03/05/18 06/16/22 History Eltrombopag Olamine [Promacta] 12.5 mg PO DAILY 06/16/22 06/16/22 History Losartan Potassium 50 mg PO BID 06/16/22 06/16/22 History amLODIPine [Norvasc] 5 mg PO DAILY 06/16/22 06/16/22 History Allergies Allergy/AdvReac Type Severity Reaction Status Date / Time Penicillins AdvReac high fever Verified 06/16/22 12:59 Surgical - Exam - General well developed, well nourished, no distress - Neck no masses, trachea midline - Respiratory normal respiratory effort - Abdomen Abdomen: soft, non tender, no guarding, no rigid, no rebound - Genitourinary normal penis with no external lesions, testicles non-tender - Rectum Rectum: normal sphincter tone, no masses, other (Prostate moderately enlarged and smooth) - Psychiatric oriented to time, oriented to person, oriented to place, speech is normal, memory intact Results - Imaging CT scan - abdomen: report reviewed, image reviewed Assessment and Plan (1) 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 The procedure has been reviewed in detail with the patient and his . They have been made aware of potential risks, including anesthesia, bleeding, infection, inability to confirm a diagnosis, and ureteral injury.
[~2022-06-19 06:19] MED LIST: DEXAMETHASONE SOD PHOSPHATE 4 MG/ML 1 ML VIAL IV ONE; HYDROmorphone 0.5 MG/0.5 ML SYRINGE IVP PRN; ONDANSETRON 4 MG/2 ML VIAL IVP ONE
[2022-06-19] MEDS: LACTATED RINGERS 1,000 ML IV SCH ×2 (06:54→07:41)
[2022-06-19] MEDS ORDERED: MIDAZOLAM 2 MG/2 ML VIAL IVP ONE (07:00)
[2022-06-19] MEDS ORDERED: SUCCINYLCHOLINE CHLORIDE 200 MG/10 ML VIAL IV ONE (07:35)
[2022-06-19] MEDS ORDERED: LIDOCAINE 4% LTA KIT (4 ML) TOPICAL ONE (07:35)
[2022-06-19] MEDS ORDERED: NEOSTIGMINE 1 MG/ML 10 ML VIAL ONE (07:35)
[2022-06-19] MEDS ORDERED: ROCURONIUM 10 MG/ML (5 ML VIAL) IV ONE (07:35)
[2022-06-19] MEDS ORDERED: fentaNYL (PF) 50 MCG/ML 2 ML AMP ONE (07:35)
[2022-06-19] MEDS ORDERED: PROPOFOL 10 MG/ML 20 ML VIAL IV ONE (07:35)
[2022-06-19] MEDS ORDERED: GLYCOPYRROLATE 0.2 MG/ML 2 ML VIAL ONE (07:35)
[2022-06-19] MEDS ORDERED: ePHEDrine 50 MG/ML 1 ML VIAL ONE (07:35)
[2022-06-19] MEDS ORDERED: LIDOCAINE 2% INJ 20 MG/ML (2 ML VIAL) ONE (07:35)
[2022-06-19] MEDS ORDERED: IOPAMIDOL-370 50ML BTL MISCELLANE ONE ×2 (08:04)
[2022-06-19 08:45] VITALS: TEMP 96.9
[2022-06-19] MEDS ORDERED: LACTATED RINGERS 1,000 ML IV ONE (08:58)
--- NOTE | 2022-06-19 09:13 | P.OP ---
Date of Procedure: 06/19/22 Preoperative Diagnosis: Left ureteral neoplasm of uncertain behavior Postoperative Diagnosis: Same, meatal stenosis Procedure(s) Performed: Urethral dilation, cystoscopy, left retrograde pyelogram, left ureteroscopy with biopsies Anesthesia: MARC Surgeon: Bao Liao Estimated Blood Loss (ml): 0 IV fluids (ml): 500 Pathology: other (Left ureteral biopsies) Condition: stable Disposition: PACU Indications for Procedure: The patient is a 67-year-old white male diagnosed with malignant carcinoid tumor of the duodenum in 2018. He undergoes serial imaging. A recent CT scan has shown moderate left hydronephrosis due to a 2.6 cm left mid ureteral tumor. 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 He denies hematuria and flank pain. He states that he is passing tiny calculi which he describes as salt-like particles. Operative Findings: Left mid-ureteral papillary tumors. Description of Procedure: The patient was taken to the operating room and placed in the dorsal lithotomy p osition, with his legs supported in Clayton stirrups. The external genitalia was prepped and draped sterilely. The urethral meatus would not accommodate the 19- [place] Stortz cystoscope. Therefore, Alpine sounds were used to perform urethral dilation. The 30 lens was then used to introduce the 19-[place] Stortz cystoscopic sheath through the urethra and into the bladder under direct vision. The remainder of the urethra appeared normal. The prostate was visually occluded, with a trilobar configuration. No urothelial changes were seen within the prostatic urethra. The bladder was examined in its entirety. Multiple tiny calculi were seen within the bladder. No tumors were seen. The ureteral orifices were normal in appearance. The calculi were removed as the bladder was drained. Using a 10-[place] cone-tipped catheter, a left retrograde pyelogram was performed. Within the left mid ureter, a large filling defect was identified. A 0.038 inch Glidewire was passed through the cystoscope. The left ureteral orifice was cannulated, and the Glidewire was advanced up to the mid ureter. It would not pass beyond the filling defect. The cystoscope was removed, and an 11/13-[place] ureteral access catheter was passed over the wire, through the distal ureter but not up to the mass. The flexible ureteroscope was then passed through the ureteral access catheter sheath and advanced under direct vision. Multiple papillary tumors were seen at the level of L5-S1. Piranha forceps were used to obtain multiple biopsies. There was no concern of ureteral perforation, and blood loss was negligible. The ureteroscope was removed along with the ureteral access catheter sheath, and the procedure was terminated. The patient tolerated the procedure well was taken to the recovery was stable condition.
[2022-06-19 09:34] VITALS: BP 168/70; PULSE 67; RESP 15
--- NOTE | 2022-06-19 13:06 | FL ---
EXAMINATION TYPE: FL urography retrograde DATE OF EXAM: 06/19/2022 FLUOROSCOPY Fluoroscopy time of 50 seconds was used during urologic procedure for left kidney stone with biopsies and stent placement. 3 image/s document/s the procedure.
== END 2022-06-19 09:39 | disposition home or self-care (01) ==
LOC: OR 06:19
PROVIDERS: ATTEND Urology
DX: C66.2 Malignant neoplasm of left ureter (principal); N35.911 Unspecified urethral stricture, male, meatal; J44.9 Chronic obstructive pulmonary disease, unspecified; K21.9 Gastro-esophageal reflux disease without esophagitis; E78.5 Hyperlipidemia, unspecified; I10 Essential (primary) hypertension; R00.2 Palpitations; R01.1 Cardiac murmur, unspecified; K57.92 Diverticulitis of intestine, part unspecified, without perforation or abscess without bleeding; K40.90 Unilateral inguinal hernia, without obstruction or gangrene, not specified as recurrent; M19.90 Unspecified osteoarthritis, unspecified site; D69.3 Immune thrombocytopenic purpura; Z90.49 Acquired absence of other specified parts of digestive tract; Z90.89 Acquired absence of other organs; Z98.890 Other specified postprocedural states; Z98.41 Cataract extraction status, right eye; Z98.42 Cataract extraction status, left eye; Z79.899 Other long term (current) drug therapy; Z87.891 Personal history of nicotine dependence; Z88.0 Allergy status to penicillin
CPT/HCPCS: 88305; 74420; 52354; C1758; C1769; J2250; J0330; J1100; J2710; J0690; J2405; J3010; J2704; Q9967; J2001

== ENCOUNTER → 2024-05-16 | Outpatient (CLI) | payer MEDICARE, BC ==
--- NOTE | 2024-05-16 10:11 | US ---
EXAMINATION TYPE: US duplex aorta DATE OF EXAM: 05/16/2024 COMPARISON: CT Chest 2022, CT Chest/Abd/Pelvis 2021 CLINICAL INDICATION: Male, 69 years old with history of I71.21 ANEURYSM OF THE ASCENDING AORTA, WITHO UT RU; Aneurysm of ascending aorta on prior imaging TECHNIQUE: Multiple sonographic images of the abdominal aorta are obtained. FINDINGS: EXAM MEASUREMENTS: Abdominal Aorta: Proximal: 2.3 x 2.4 cm Mid: 2.3 x 2.1 cm Distal: 2.1 x 2.2 cm Bifurcation: Right Iliac: 1.1 x 1.3 cm Left Iliac: 1.1 x 1.5 cm DEVELOPMENT MGR NOTES: Exam is slightly limited due to gas. *Left iliac appears to measure upper limits. IMPRESSION: No evidence for aortic aneurysm. Mild ectasia up to 2.4 cm at the upper abdomen. [facility], , 05/16/2024 10:08 AM
== END | disposition home or self-care (01) ==
LOC: RADUSWWP 09:06
PROVIDERS: ATTEND Nurse Practitioner Family
DX: I71.21 Aneurysm of the ascending aorta, without rupture (principal)
CPT/HCPCS: 93979